=== PATIENT | male | born 1995 | race Caucasian/White ===

== ENCOUNTER 2019-03-20 04:40 | Emergency (ER) | payer BC ==
[~2019-03-20] VITALS: Ht 182.9 cm; Wt 88.6 kg
[2019-03-20 04:46] VITALS: Ht 182.9 cm; Wt 88.6 kg
[2019-03-20] MEDS ORDERED: ADDERALL 30 MG30 MG PO (04:48)
[2019-03-20] MEDS ORDERED: EFFEXOR XR150 MG PO (04:49)
[2019-03-20 06:33] LABS: CREATINE KINASE 205 UL (21-232); TROPONIN-I < 0.017 ng/mL (0.000-0.060)
[2019-03-20] MEDS ORDERED: VOLTAREN75 MG PO (06:51)
[2019-03-20] MEDS ORDERED: TENORMIN25 MG PO (06:53)
[2019-03-20 07:46] VITALS: BP 140/94
== END 2019-03-20 07:44 | disposition home or self-care (01) ==
LOC: D.ER 04:40
PROVIDERS: Emergency Medicine
DX: R07.9 Chest pain, unspecified (principal); F19.10 Other psychoactive substance abuse, uncomplicated; M54.9 Dorsalgia, unspecified